=== PATIENT | male | born 1965 | race African-American/Black ===

== ENCOUNTER 2018-11-23 03:34 | Emergency (ER) | payer MEDICAID ==
[~2018-11-23] VITALS: Ht 182.9 cm; Wt 86.0 kg
[2018-11-23] MEDS ORDERED: KETOROLAC 60MG/2ML VIAL IM ONE (07:00)
[2018-11-23 08:57] VITALS: BP 125/80
== END 2018-11-23 08:59 | disposition home or self-care (01) ==
LOC: ER 03:34
DX: S20.229A Contusion of unspecified back wall of thorax, initial encounter (principal); V49.40XA Driver injured in collision with unspecified motor vehicles in traffic accident, initial encounter; Y93.89 Activity, other specified; Y92.410 Unspecified street and highway as the place of occurrence of the external cause
CPT/HCPCS: 72070; 96372; 99283; J1885

== ENCOUNTER 2020-02-20 00:39 | Emergency (ER) | payer MEDICAID ==
[~2020-02-20] VITALS: Ht 185.4 cm; Wt 94.2 kg
[2020-02-20 00:55] VITALS: BP 140/83
== END 2020-02-20 01:41 | disposition left against medical advice (07) ==
LOC: ER 00:39
DX: M25.552 Pain in left hip (principal); M25.512 Pain in left shoulder; G89.29 Other chronic pain; J45.909 Unspecified asthma, uncomplicated; F17.290 Nicotine dependence, other tobacco product, uncomplicated; Z98.890 Other specified postprocedural states
CPT/HCPCS: 99281

== ENCOUNTER 2020-04-14 22:46 | Emergency (ER) | payer MEDICAID ==
[~2020-04-14] VITALS: Ht 182.9 cm; Wt 81.0 kg
[2020-04-14 22:49] VITALS: BP 148/82
== END 2020-04-15 00:20 | disposition left against medical advice (07) ==
LOC: ER 22:46
DX: G89.29 Other chronic pain (principal); M54.89 Other dorsalgia; R03.0 Elevated blood-pressure reading, without diagnosis of hypertension
CPT/HCPCS: 99283

== ENCOUNTER 2020-05-05 07:39 | Emergency (ER) | payer MEDICAID ==
[~2020-05-05] VITALS: Ht 185.4 cm; Wt 113.0 kg
[2020-05-05] MEDS ORDERED: ASPIRIN 81MG TABLET PO ONE (07:45)
[2020-05-05 08:05] LABS: BASOPHILS % 0.8 % (0.0-2.0); HEMATOCRIT. 43.9 % (42.0-52.0); HEMOGLOBIN. 14.8 g/dL (14.0-18.0); LYMPHOCYTES % 38.6 % (20.0-50.0); MEAN CORPUSCULAR HEMOGLOBIN 32.4 pg (28.0-32.0); MEAN CORPUSCULAR VOLUME 96.1 fL (80.0-94.0); MEAN PLATELET VOLUME 7.5 fl (7.4-10.4); MONOCYTES % 7.5 % (2.0-8.0); NEUTROPHILS % 51.1 % (40.0-76.0); PLATELET 218 x1000/uL (130-400); RED BLOOD CELL COUNT 4.57 mill/uL (4.7-6.1); RED CELL DISTRIBUTION WIDTH 13.2 % (11.6-14.6)
[2020-05-05 08:13] LABS: CHLORIDE 106 mEq/L (98-107)
[2020-05-05 08:17] LABS: ETHANOL BLOOD < 10 mg/dL
[2020-05-05 09:00] LABS: *AMPHETAMINES SCREEN URINE NEGATIVE (NEGATIVE); *BARBITURATES SCREEN URINE NEGATIVE (NEGATIVE); *BENZODIAZEPINES SCREEN URINE NEGATIVE (NEGATIVE); *COCAINE SCREEN URINE NEGATIVE (NEGATIVE)
[2020-05-05 09:01] LABS: CANNABINOID URINE SCREEN PRESUMTIVE POSITIVE (NEGATIVE); METHADONE URINE SCREEN NEGATIVE (NEGATIVE); OPIATES URINE SCREEN NEGATIVE (NEGATIVE); PHENCYCLIDINE URINE SCREEN NEGATIVE (NEGATIVE)
[2020-05-05] MEDS ORDERED: NITROGLYCERIN 0.4MG TABLET SL SL ONE (09:15)
[2020-05-05] MEDS ORDERED: ACETAMINOPHEN WITH CODEINE 300/30MG TABLET PO ONE (09:15)
[2020-05-05] MEDS ORDERED: MORPHINE SULFATE 2 MG/ML CPJ (NOT FOR IM USE) IV PRN (12:00)
[2020-05-05] MEDS ORDERED: DIPHENHYDRAMINE 50MG/ML VIAL IV PRN (12:00)
[2020-05-05] MEDS ORDERED: IPRATROPIUM/ALBUTEROL 0.5-3(2.5)MG/3ML NEB HHN PRN (12:00)
[2020-05-05] MEDS ORDERED: ACETAMINOPHEN 325MG TABLET PO PRN (12:00)
[2020-05-05] MEDS ORDERED: CLONIDINE 0.1MG TABLET PO PRN (12:00)
[2020-05-05] MEDS ORDERED: ONDANSETRON HCL 4MG/2ML INJ IV PRN (12:00)
[2020-05-05] MEDS ORDERED: ENOXAPARIN 40MG/0.4ML SYR SUBCUT SCH (12:00)
[2020-05-05] MEDS ORDERED: GUAIFENESIN-DM 200MG-20MG/10ML UDC PO PRN (15:45)
[2020-05-05 18:57] VITALS: BP 147/60
== END 2020-05-05 19:04 | disposition left against medical advice (07) ==
LOC: ER 07:54 → CANBEDREQ 18:57 → ER 19:04
DX: I20.0 Unstable angina (principal); I10 Essential (primary) hypertension; E78.00 Pure hypercholesterolemia, unspecified; J45.909 Unspecified asthma, uncomplicated; Z98.890 Other specified postprocedural states; Z88.6 Allergy status to analgesic agent
CPT/HCPCS: 36415; 71045; 80053; 80061; 80305; 80320; 83880; 84484; 85025; 93005; 93970; 96372; 99285; J1650; Z7610; G0480

== ENCOUNTER 2020-07-26 07:17 | Emergency (ER) | payer MEDICAID ==
[~2020-07-26] VITALS: Ht 185.4 cm; Wt 92.0 kg
[2020-07-26 07:28] VITALS: BP 140/92
== END 2020-07-26 08:33 | disposition left against medical advice (07) ==
LOC: ER 07:46
DX: Z53.21 Procedure and treatment not carried out due to patient leaving prior to being seen by health care provider (principal)

== ENCOUNTER 2021-03-24 08:09 | Emergency (ER) | payer MEDICAID ==
[~2021-03-24] VITALS: Ht 182.9 cm; Wt 82.0 kg
[2021-03-24] MEDS ORDERED: ALBUTEROL (0.083%) 2.5MG/3ML NEB HHN STA (08:31)
[2021-03-24] MEDS ORDERED: PREDNISONE 20MG TABLET PO STA (08:31)
[2021-03-24] MEDS ORDERED: IPRATROPIUM BROMIDE (0.02%) 0.5MG/2.5ML NEB HHN STA (08:31)
[2021-03-24] MEDS ORDERED: ALBU6.7H9 INH (09:07)
[2021-03-24] MEDS ORDERED: FLUT9.9S BOTHNSTRLS (09:07)
[2021-03-24] MEDS ORDERED: P50 MT (09:07)
[2021-03-24 10:04] VITALS: BP 147/78
== END 2021-03-24 10:05 | disposition home or self-care (01) ==
LOC: ER 08:09
DX: R05.9 Cough, unspecified (principal); R06.2 Wheezing
CPT/HCPCS: 71045; 94644; 99285; J7512; Z7610

== ENCOUNTER 2021-03-26 16:53 | Emergency (ER) | payer MEDICAID ==
[~2021-03-26] VITALS: Ht 185.4 cm; Wt 100.0 kg
[~2021-03-26 16:53] MED LIST: ALBU6.7H9 INH; FLUT9.9S BOTHNSTRLS; P50 MT
[2021-03-26] MEDS ORDERED: ACET-2708 MT (17:19)
[2021-03-26] MEDS ORDERED: ACETAMINOPHEN 325MG TABLET PO ONE (17:30)
[2021-03-26 17:46] VITALS: BP 135/65
== END 2021-03-26 17:46 | disposition home or self-care (01) ==
LOC: ER 16:53
DX: S16.1XXA Strain of muscle, fascia and tendon at neck level, initial encounter (principal); S39.012A Strain of muscle, fascia and tendon of lower back, initial encounter; V49.49XA Driver injured in collision with other motor vehicles in traffic accident, initial encounter; R03.0 Elevated blood-pressure reading, without diagnosis of hypertension; Y93.89 Activity, other specified; Y92.488 Other paved roadways as the place of occurrence of the external cause; J45.909 Unspecified asthma, uncomplicated; Z98.890 Other specified postprocedural states
CPT/HCPCS: 99282

== ENCOUNTER 2021-06-14 10:20 | Emergency (ER) | payer MEDICAID ==
[~2021-06-14] VITALS: Ht 177.8 cm; Wt 87.0 kg
[~2021-06-14 10:20] MED LIST changes: +ACET-2708 MT
[2021-06-14 10:23] VITALS: BP 144/86
[2021-06-14 12:00] LABS: BASOPHILS % 0.8 % (0.0-2.0); EOSINOPHILS % 1.3 % (0.0-5.0); HEMATOCRIT. 43.2 % (42.0-52.0); HEMOGLOBIN. 14.6 g/dL (14.0-18.0); LYMPHOCYTES % 36.4 % (20.0-50.0); MEAN CORPUSCULAR HEMOGLOBIN 32.2 pg (28.0-32.0); MEAN CORPUSCULAR VOLUME 94.9 fL (80.0-94.0); MEAN PLATELET VOLUME 7.5 fl (7.4-10.4); MONOCYTES % 11.8 % (2.0-8.0); NEUTROPHILS % 49.7 % (40.0-76.0); PLATELET 224 x1000/uL (130-400); RED BLOOD CELL COUNT 4.55 mill/uL (4.7-6.1)
[2021-06-14 12:03] LABS: CHLORIDE 107 mEq/L (98-107)
== END 2021-06-14 13:58 | disposition home or self-care (01) ==
LOC: ER 10:38
DX: R07.2 Precordial pain (principal); R00.2 Palpitations; R06.02 Shortness of breath; T43.615A Adverse effect of caffeine, initial encounter; Y92.89 Other specified places as the place of occurrence of the external cause
CPT/HCPCS: 36415; 71045; 80053; 84484; 85025; 93005; 99285

== ENCOUNTER 2024-06-16 09:11 | Emergency (ER) | payer MEDICAID, OTHER ==
[~2024-06-16] VITALS: Ht 182.9 cm; Wt 100.0 kg
[~2024-06-16 09:11] MED LIST changes: +ALBU6.7H3 INH; -ALBU6.7H9 INH
[2024-06-16 09:13] VITALS: BP 144/81; PULSE 100; RESP 18; TEMP 37.2; O2SAT 97
== END 2024-06-16 11:34 ==
LOC: ER 09:11
DX: S89.92XA Unspecified injury of left lower leg, initial encounter (principal); G89.11 Acute pain due to trauma; J45.909 Unspecified asthma, uncomplicated; Z98.890 Other specified postprocedural states; Z79.899 Other long term (current) drug therapy; Z88.6 Allergy status to analgesic agent; X58.XXXA Exposure to other specified factors, initial encounter; Y93.89 Activity, other specified; Y92.89 Other specified places as the place of occurrence of the external cause; Y99.8 Other external cause status
CPT/HCPCS: 72100; 73030; 73590; 99283; 99284